=== PATIENT | female | born 2000 | race Caucasian/White ===

== ENCOUNTER 2024-03-19 18:13 | Inpatient (IN) | payer OTHER ==
[~2024-03-19] VITALS: Ht 154.9 cm; Wt 69.1 kg
[2024-03-19] VITALS (19 sets, daily range): BP systolic 107–160; BP diastolic 55–81; PULSE 71–105; TEMP 97.9–98.8
--- NOTE | 2024-03-19 18:30 | NUR ---
1830 G1L0 39 WEEK GEST TO LR5 WITH C/O CONTRACTIONS. EFM ON. SVE 7-8CM WITH BULGY BOW. ADM ASSESS DONE. GBS +. 184 DR MATOS NOTIFIED AND ORDERS RECEIVED TO ADMIT.
[2024-03-19] MEDS ORDERED: LR 1,000 ML IV SCH (18:45)
[2024-03-19] MEDS ORDERED: Penicillin G Potassium 5,000,000 UNITS in NS 100 ML IV ONE (18:45)
[2024-03-19] MEDS ORDERED: LR & Oxytocin 500 ML IV SCH (19:00)
[2024-03-19] MEDS ORDERED: ROPivacaine PF 0.2% 200 ML IV ONE (19:00)
--- NOTE | 2024-03-19 19:00 | NUR ---
190.0 IV STARTED, LAB OBTAINED AND ANTIBIOTICS STARTED PER DRS ORDERS. PERMITS SIGNED. WANTING AN EPID AND DRUG CLERK HERE ON UNIT AND NOTIFIED.
--- NOTE | 2024-03-19 19:15 | NUR ---
1915 SITTING ON SIDE OF BED FOR EPIDURAL PLACEMENT. SEE ANESTHESIA RECORDS FOR MORE INFORMATION.
--- NOTE | 2024-03-19 19:20 | NUR ---
Sitting on edge of bed for epidural, test dose given. 1924 Pt readjusted in bed.
[2024-03-19 19:21] LABS: BASO # 0.1 K/mm3 (0.0-0.2); BASO % 0.3 % (0.0-2.0); EOS # 0.2 K/mm3 (0.0-0.7); GRAN # 14.5 K/mm3 (1.4-6.5); GRAN % 81.9 % (42.2-75.2); LYMPH # 1.7 K/mm3 (1.2-3.4); LYMPH % 9.8 % (20.0-51.0); MEAN CELL VOLUME 82 fl (80.0-100.0); MEAN CORPUSCULAR HGB CONC 32 g/dl (33.0-37.0); MEAN PLATELET VOLUME 9.9 fl (7.4-10.4); MONO % 5.8 % (1.7-9.3); PLATELET COUNT 410 K/mm3 (130-400); RED BLOOD COUNT 3.41 M/mm3 (4.10-5.30)
[2024-03-19 19:22] LABS: HEMATOCRIT 28.1 % (37.0-47.0); MEAN CORPUSCULAR HEMOGLOBIN 26 pg (27-31)
[2024-03-19] MEDS ORDERED: diphenhydrAMINE 50 MG/ML 1 ML VIAL IV PRN (19:45)
[2024-03-19] MEDS ORDERED: diphenhydrAMINE 25 MG CAP PO PRN (19:45)
[2024-03-19] MEDS ORDERED: ePHEDrine 50 MG/10 ML VIAL IV PRN (19:45)
[2024-03-19] MEDS ORDERED: Ondansetron 4 MG/2 ML VIAL IV PRN (19:45)
[2024-03-19] MEDS ORDERED: Naloxone 0.4 MG/ML VIAL IV PRN (19:45)
--- NOTE | 2024-03-19 20:30 | NUR ---
pt reports "I don't think the epidural is working. I can feel all the ctx on the left side" Pt turned more to wedge left and encouraged to push epidural TRUST ADMINISTRATIVE ASSISTANT button.
--- NOTE | 2024-03-19 21:00 | NUR ---
Pt reports continues pain and feeling ctx on L side. SVE unchanged. Pt tenses and moves away with SVE. PT to LL and pushes epidural ASSOCIATE PROFESSOR OF BIOLOGY button. Anesthesia notified of discomfort level. Anesthesia in OR. Pt notified that Anesthesia would come as soon as possible.
--- NOTE | 2024-03-19 21:15 | NUR ---
To LL with PB, pushes epidural button.
--- NOTE | 2024-03-19 21:45 | NUR ---
Pt requests epidural, stating "I really feel like I need to pee" Explained to pt that I hadn't placed catheter because she had been so uncomfortable with the SVE. [place] catheter placed, with immediate return of clear yellow urine. Pt tolerates well, stating "I didn't even feel it." Back to LL with PB.
--- NOTE | 2024-03-19 22:35 | NUR ---
Dr Prater into room to see pt. Discusses POC with pt. AROM, small amount clear fluid. Pt tolerates procedure well. Pt reports "I still feel all the ctx. The epidural isn't working"
[2024-03-19] MEDS ORDERED: Penicillin G Potassium 2,500,000 UNITS in NS 100 ML IV SCH (22:44)
--- NOTE | 2024-03-19 22:45 | NUR ---
Mariel REFRIGERATING ENGINEER HEAD into room to discuss continued discomfort. Pt agrees to having epidural replaced. Pt moved to sit on edge of bed. See anesthesia record for information. First epidural removed. EFM tracing Maternal HR while sitting up. 2300 Epidural test dose. 230 Repositioned to .
[2024-03-19] MEDS ORDERED: NS 10 ML IV ONE (23:25)
[2024-03-19] MEDS ORDERED: Lidocaine PF 2% (20 MG/ML) 5 ML VIAL ONE (23:25)
--- NOTE | 2024-03-19 23:30 | NUR ---
Pt states "that L side still isn't very comfortable" Pt turned to L wedge and aneshtesia pushes Epidural CROP PRODUCTION ADVISOR button.
--- NOTE | 2024-03-19 23:45 | NUR ---
Pt relaxed, social. Reports "it's feeling much better"
[2024-03-20] VITALS (30 sets, daily range): BP systolic 100–132; BP diastolic 54–77; PULSE 76–110; TEMP 82–98.9
--- NOTE | 2024-03-20 04:30 | NUR ---
Pushing well. FHT's early and late decel with pushing.
--- NOTE | 2024-03-20 04:50 | NUR ---
Dr Prater called to come for delivery. 0506 Dr Prater into room for delivery. Pt set up for delivery. [address] Prater.
--- NOTE | 2024-03-20 05:14 | NUR ---
Placenta delivers spont and intact with 3 vessel cord. Pitocin gtt to bolus rate. Pt and family loving and pleased about infant. Dr Prater starts perineal repair.
--- NOTE | 2024-03-20 05:30 | NUR ---
Perineal repair complete, pericare done. Ice pack to perineum and bed back together.
[2024-03-20] MEDS ORDERED: Loratadine 10 MG TAB PO PRN (05:45)
[2024-03-20] MEDS ORDERED: Magnes Hydrox (MOM) 80 MG/ML 30 ML CUP PO PRN (05:45)
[2024-03-20] MEDS ORDERED: Mag/Al Hydrox/Simeth Susp 30 ML CUP PO PRN (06:15)
[2024-03-20] MEDS ORDERED: Ibuprofen 800 MG TAB PO SCH (06:15)
[2024-03-20] MEDS ORDERED: oxyCODONE 5 MG TAB PO PRN (06:15)
[2024-03-20] MEDS ORDERED: Measles/Mumps/Rubella Virus Vaccine Live w Diluent 0.5 ML VIAL SQ SCH (06:15)
[2024-03-20] MEDS ORDERED: Acetaminophen 500 MG TAB PO SCH (06:15)
[2024-03-20] MEDS ORDERED: Naloxone 0.4 MG/ML VIAL IV PRN (06:15)
[2024-03-20] MEDS ORDERED: Phenylephrine/Mineral Oil/Petrolatum 57 GM TUBE RC PRN (06:15)
[2024-03-20] MEDS ORDERED: Witch Hazel 50% Pads Bulk TUB TP PRN (06:15)
[2024-03-20] MEDS ORDERED: Sennosides/Docusate 8.6-50 MG TAB PO SCH (08:00)
--- NOTE | 2024-03-20 13:55 | NUR ---
REPORT TAKEN AND CARE ASSUMED.
[2024-03-20] MEDS ORDERED: traZODone 50 MG TAB PO PRN (21:00)
[2024-03-21 08:42] VITALS: BP 111/75; PULSE 79; TEMP 98.2
[2024-03-21] MEDS ORDERED: IBU800 M1 PO (09:44)
--- NOTE | 2024-03-21 14:52 | NUR ---
PT AND PT SPOUSE VERBALLY UNDERSTANDING OF DISCHARGE INSTRUCTIONS AND SIGN DISCHARGE PAPERWORK. PT AND INFANT VS STABLE. [facility]ED SAFELY [facility] FAMILY MEMBER, PT, PT SPOUSE, AND IN CARSEAT SAFELY ESCOURTED AND AMBULATORY OFF UNIT PER THIS RN.
== END 2024-03-21 14:52 | disposition home or self-care (01) | DRG 807 ==
LOC: LDRO 18:13 → LDR 18:46 → OB 03-20 12:16
PROVIDERS: ADMIT Obstetrics & Gynecology
PROC: 0HQ9XZZ Repair Perineum Skin, External Approach (ICD-10-PCS; principal; 2024-03-19)
PROC: 10E0XZZ Delivery of Products of Conception, External Approach (ICD-10-PCS; 2024-03-19)
DX: O70.0 First degree perineal laceration during delivery (principal); Z37.0 Single live birth; Z3A.39 39 weeks gestation of pregnancy
CPT/HCPCS: J2540; J2590; J2795; J7120